=== PATIENT | female | born 1985 | race Caucasian/White ===

== ENCOUNTER 2019-06-14 11:24 | Inpatient (IN) ==
[2019-06-14] MEDS ORDERED: ZOFRAN IM PRN (17:32)
[2019-06-14] MEDS ORDERED: NICODERM PATCH TD PRN (17:32)
[2019-06-14] MEDS ORDERED: TUBERSOL ID ONE (17:32)
[2019-06-14] MEDS ORDERED: MAALOX PLUS LIQUID PO PRN (17:32)
[2019-06-14] MEDS ORDERED: D5W 1,000 ML IV PRN (17:32)
[2019-06-14] MEDS ORDERED: DULCOLAX PR PRN (17:32)
[2019-06-14] MEDS ORDERED: MOTRIN PO PRN (17:32)
[2019-06-14] MEDS ORDERED: ZOFRAN ODT PO PRN (17:32)
[2019-06-14] MEDS ORDERED: IMODIUM PO PRN ×2 (17:32)
[2019-06-14] MEDS ORDERED: SENOKOT PO PRN (17:32)
[2019-06-14] MEDS ORDERED: DESYREL PO PRN (17:32)
[2019-06-14] MEDS ORDERED: PHENOBARBITAL IV PRN (17:32)
[2019-06-14] MEDS ORDERED: ZOFRAN IV PRN (17:32)
[2019-06-14] MEDS ORDERED: NICOTINE GUM BUCCAL PRN (17:32)
[2019-06-14] MEDS ORDERED: TYLENOL PO PRN (17:32)
[2019-06-14 17:54] LABS: HEMATOCRIT 41.6 % (37.0-47.0); HEMOGLOBIN 13.9 g/dL (12.0-16.0); MCH 32.6 PG (27-31); MCHC 33.4 g/dL (33-37); MCV 97.4 FL (81-99); MPV 9.5 FL (7.4-10.4); RBC 4.27 XMIL (4.2-5.4); WBC 9.37 X1000 (4.8-10.8)
[2019-06-14 18:08] LABS: AGAP 13; ALBUMIN 4.4 g/dL (3.5-5.0); ALKALINE PHOSPHATASE 116 U/L (32-104); AMYLASE 31 U/L (20-200); BUN 11 mg/dL (8-22); CALCIUM 8.7 mg/dL (8.8-10.2); CHLORIDE 102 mmol/L (98-107); COSMO 271; CREATININE 0.5 mg/dL (0.5-0.9); ESTIMATED GFR > 60; GLUCOSE 101 mg/dL (70-104); GOT 40 U/L (10-30); GPT 20 U/L (10-36); LIPASE 27 U/L (13-60); POTASSIUM 4.2 mmol/L (3.5-5.1); SODIUM 136 mmol/L (136-145); TCO2 21 mmol/L (25-35); TOTAL PROTEIN 7.6 g/dL (6.3-8.3)
[2019-06-14 18:15] LABS: INR 0.89; PROTIME 12.5 Seconds (11.0-16.0)
[2019-06-14] MEDS ORDERED: BENTYL PO PRN (18:19)
[2019-06-14] MEDS ORDERED: SALINE LOCK IV FLUID XX ONE (18:19)
[2019-06-14] MEDS ORDERED: ATIVAN IV ONE (18:37)
[2019-06-14] MEDS: LIBRIUM PO SCH (18:38)
[2019-06-14 19:29] LABS: URINE SOURCE CLEAN CATCH
[2019-06-14 19:32] LABS: BILIRUBIN URINE NEGATIVE (NEGATIVE); BLOOD URINE TRACE (NEGATIVE); COLOR YELLOW; GLUCOSE URINE NEGATIVE (NEGATIVE); KETONE URINE 40 mg/dL (NEGATIVE); LEUKOCYTES URINE MODERATE (NEGATIVE); NITRITE URINE NEGATIVE (NEGATIVE); PH URINE 6.5; PROTEIN URINE 50 mg/dL (NEGATIVE); SP GRAVITY URINE 1.028; TURBIDITY URINE HAZY (CLEAR); UROBILINOGEN URINE NORMAL (NORMAL)
[2019-06-14 19:43] LABS: UR AMPHETAMINES QUAL NONE DETECTED (NONE DETECT); UR BARBITUATES QUAL NONE DETECTED (NONE DETECT); UR BENZODIAZEPIN QUAL NONE DETECTED (NONE DETECT); UR CANNABINOIDS QUAL NONE DETECTED (NONE DETECT); UR COCAINE QUAL NONE DETECTED (NONE DETECT); UR METHADONE QUAL NONE DETECTED (NONE DETECT); UR METHAMPHETAMINE QUAL NONE DETECTED (NONE DETECT); UR OPIATES QUAL NONE DETECTED (NONE DETECT); UR OXYCODONE QUAL PRESUMPTIVE POSITIVE (NONE DETECT); UR PCP QUAL NONE DETECTED (NONE DETECT); UR PROPOXYPHENE QUAL NONE DETECTED (NONE DETECT); UR TCA QUAL NONE DETECTED (NONE DETECT)
[2019-06-14 19:48] LABS: UR EPITHELIAL CELLS >10 /HPF (<10); URINE BACTERIA 2+ /HPF; URINE SMALL ROUND CELLS RENAL PRESENT; URINE WBC 20-40 /HPF (<10); URINE YEAST NONE SEEN
[2019-06-15] MEDS: LIBRIUM PO SCH ×4 (00:25→18:22)
[2019-06-15] MEDS: PROTONIX PO SCH (06:01)
[2019-06-15] MEDS: ATARAX PO PRN ×3 (06:02→21:47)
[2019-06-15] MEDS ORDERED: M.V.I.-12 10 ML, FOLIC ACID 1 MG, MAGNESIUM SULFATE 1 GM, THIAMINE 100 MG in NS 1,000 ML IV ONE (08:00)
[2019-06-15] MEDS ORDERED: BUSPAR PO PRN (08:19)
[2019-06-15] MEDS: THERA M PLUS PO SCH (10:22)
[2019-06-15] MEDS: FOLIC ACID PO SCH (10:22)
[2019-06-15] MEDS: VITAMIN B-1 PO SCH (10:22)
[2019-06-15] MEDS: CAMPRAL PO SCH ×3 (10:23→18:21)
[2019-06-15] MEDS: WELLBUTRIN XL PO SCH (10:23)
[2019-06-15] MEDS: BUSPAR PO PRN (10:51)
[2019-06-15] MEDS: LITHIUM CARBONATE PO SCH ×2 (13:11→21:47)
--- NOTE | 2019-06-15 15:00 | PROGRESS NOTE ---
DATE: 06/15/2019 SUBJECTIVE: Patient has no new complaints. States that overall she is feeling a little bit better, less tremors, less anxiety, less agitation. A little bit less irritability as well. PHYSICAL EXAMINATION: Vital Signs: Reviewed. Temperature 98 degrees, pulse 81, respiratory rate 18, BP 140/101. General: Patient is awake, alert. She appears to be improved. She is not shaking nearly as much as she was yesterday on exam. HEENT: Normocephalic. Neck: Supple. Cardiovascular: Regular rate. No murmurs. Chest: Clear, nonlabored. Abdomen: Soft and nontender. Extremities: Moves all extremities. Neurologic: No changes. No tremors. ASSESSMENT: 1. Hypertension. The patient has no history of high blood pressure, although is currently elevated. Going to treat symptomatic certainly for now. Certainly may need to start long- term medications. 2. Nausea and vomiting. 3. Abdominal pain. 4. Tremors. 5. Myalgias. 6. Acute anxiety with situational depression. 7. Chronic alcoholism with acute withdrawal. PLAN: We are going to continue the patient in the hospital. Continue counseling. Continue medications for alcohol withdrawal. Librium as tolerated. cc: Alvarez Hood MD
[2019-06-15] MEDS ORDERED: ATIVAN IV ONE (18:37)
[2019-06-15] MEDS ORDERED: FLU VACCINE IM ONE (19:30)
[2019-06-15] MEDS: ROBAXIN PO PRN (21:47)
[2019-06-15] MEDS: SEROQUEL PO PRN (21:47)
[2019-06-16] MEDS: LIBRIUM PO SCH ×5 (00:22→17:24)
[2019-06-16] MEDS: PROTONIX PO SCH (06:16)
[2019-06-16] MEDS ORDERED: ROCEPHIN 1 GM in NS 50 ML IV SCH (08:30)
[2019-06-16] MEDS: CAMPRAL PO SCH ×3 (09:38→17:24)
[2019-06-16] MEDS: PRINIVIL PO SCH (09:38)
[2019-06-16] MEDS: FOLIC ACID PO SCH (09:38)
[2019-06-16] MEDS: THERA M PLUS PO SCH (09:38)
[2019-06-16] MEDS: LITHIUM CARBONATE PO SCH ×2 (09:38→22:11)
[2019-06-16] MEDS: VITAMIN B-1 PO SCH (09:39)
[2019-06-16] MEDS: WELLBUTRIN XL PO SCH (09:39)
[2019-06-16] MEDS: ATARAX PO PRN (13:49)
[2019-06-16] MEDS: HALDOL IV PRN (18:35)
--- NOTE | 2019-06-16 20:26 | PROGRESS NOTE ---
DATE: 06/16/2019 SUBJECTIVE: The patient still has a multitude of complaints. Notes that she has been hallucinating. She has been listening to her father and her mother talking outside the [place]. States that she just wants to get knocked out and stay asleep the whole time. PHYSICAL EXAMINATION: Vital Signs: Reviewed. She is awake, alert. She is in no distress. HEENT: Normocephalic, atraumatic. PERRL. Neck: Supple. No JVD. Cardiovascular: Regular rate. No murmurs. Chest: Clear, nonlabored. Abdomen: Soft, nondistended. Extremities: Moves all extremities. ASSESSMENT: 1. Nausea and vomiting. 2. Abdominal pain. 3. Myalgias. 4. Tremors. 5. Alcohol abuse, withdrawal and stabilization. 6. Bipolar depression. PLAN: Discussed with the patient that alcohol hallucinations typically are not as specific as her talking to her father outside, her father talking to me about giving her medication that would sedate her and keep her asleep for the next 2 to 3 days. Discussed with her that is highly unusual and unlikely alcoholic hallucinations and most likely manipulating behavior. Discussed that we will not give her medications that will make her stay asleep for the next 2 or 3 days and at that that is highly unacceptable practice and very dangerous. We will continue to wean her Librium. She currently has no outward symptoms of alcohol withdrawal. She is not tachycardic. She has no tremor. She has no sweating. She is not fidgeting about. However, she is anxious, but it is more from a depression standpoint than from an alcohol withdrawal standpoint. We will continue to follow. cc: Alvarez Hood MD
[2019-06-17] MEDS: VITAMIN B-1 PO SCH (09:57)
[2019-06-17] MEDS: WELLBUTRIN XL PO SCH (09:57)
[2019-06-17] MEDS: LIBRIUM PO SCH ×3 (09:57→17:36)
[2019-06-17] MEDS: CAMPRAL PO SCH ×3 (09:57→17:37)
[2019-06-17] MEDS: LITHIUM CARBONATE PO SCH ×2 (09:58→21:00)
[2019-06-17] MEDS: FOLIC ACID PO SCH (09:58)
[2019-06-17] MEDS: PRINIVIL PO SCH (09:58)
[2019-06-17] MEDS: PROTONIX PO SCH (09:58)
[2019-06-17] MEDS: THERA M PLUS PO SCH (09:58)
--- NOTE | 2019-06-17 18:20 | PROGRESS NOTE ---
DATE: 06/17/2019 SUBJECTIVE: The patient notes that she is feeling a lot better this morning. She slept some last night. Denies any fevers or chills. OBJECTIVE: Vital signs reviewed and stable. She is awake, alert. She is in no distress. HEENT: Normocephalic. Neck supple. CV: Regular rate. No murmurs. Chest clear. Abdomen soft. Extremities: Moves all extremities. Neurologic: No changes. Vital signs: Temperature 98.4 degrees, pulse 86, respiratory rate 20, BP 120/68. ASSESSMENT: 1. Nausea and vomiting. 2. Abdominal pain. 3. Myalgias. 4. Tremors. 5. Paresthesias. 6. Paroxysmal sweating. 7. Alcohol abuse, withdrawal and stabilization. 8. Chronic anxiety and depression. PLAN: We are going to continue the patient in the hospital. Continue to wean Librium. Continue counseling. Further orders as needed. cc: Alvarez Hood MD
--- NOTE | 2019-06-17 20:06 | HISTORY AND PHYSICAL ---
CHIEF COMPLAINT: Nausea and vomiting. HISTORY OF PRESENT ILLNESS: The patient is a 33-year-old female who presented to [facility] secondary to nausea, vomiting, abdominal pain, myalgias, paresthesias. Notes she has been drinking heavily. Has been unable to stop secondary to withdrawal symptoms. SOCIAL HISTORY: She is , but currently has relationship problems secondary to alcoholism. She is currently unemployed. Lives at home in [place]. PAST MEDICAL HISTORY: Positive for: 1. Depression. 2. Alcoholism. 3. History of blackouts related to alcohol. 4. History of hypertension, felt to be related to alcohol, although currently not on any medications. MEDICATIONS: 1. 50 mg t.i.d. of naltrexone. 2. Wellbutrin. 3. BuSpar 15. 4. [place] 150. ALLERGIES: No known drug allergies. REVIEW OF SYSTEMS: CIWA score is 19 secondary to nausea and vomiting and severe tremors. She is unable to keep her hands still. She is shaky, weak, fatigued, has nausea. Denies any diarrhea. Has been having sweating episodes. Denies chest pain, palpitations. Denies fevers, chills, dysuria, frequency, urgency, hesitancy, polyuria or polydipsia. SUBSTANCE ABUSE HISTORY: The patient was in treatment in 2015 in [place] for 10 days. Stayed sober for 4 to 5 months from September through October 2018. She was at [facility] for 30 days, remained sober for 6 months, and relapsed in March. Alcohol has caused legal and relationship problems. She started drinking as early as age 31, currently is drinking 1 to 2 bottles of wine a day. Denies smoking or other illicit substances. FAMILY HISTORY: No family history of alcoholism per the patient. PHYSICAL EXAMINATION: VITAL SIGNS: Reviewed. GENERAL: She is awake, alert, oriented. She is in no current respiratory distress. HEENT: Normocephalic. NECK: Supple. CARDIOVASCULAR: Regular rate. No murmurs. CHEST: Clear. ABDOMEN: Soft, nondistended. EXTREMITIES: Moves all extremities. NEUROLOGIC: She is awake, alert, oriented. She has obvious tremors with her arms at rest. She is unable to answer in complete sentences. Frequently has to be redirected to answer questions. ASSESSMENT: 1. Nausea and vomiting. 2. Abdominal pain. 3. Myalgias. 4. Paresthesias. 5. Paroxysmal sweating. 6. Tremors. 7. Alcohol abuse withdrawal and stabilization. 8. Depression. PLAN: We will continue patient in the hospital on high-dose Librium taper. Place her on protocol. Will adjust as needed. Begin counseling. Will follow her blood pressures which were mildly elevated. Further orders as needed. cc: Alvarez Hood MD
[2019-06-17] MEDS: HALDOL IV PRN (21:00)
[2019-06-18] MEDS: PROTONIX PO SCH (06:15)
[2019-06-18] MEDS: CAMPRAL PO SCH ×3 (09:59→17:20)
[2019-06-18] MEDS: WELLBUTRIN XL PO SCH ×2 (09:59→12:25)
[2019-06-18] MEDS: LITHIUM CARBONATE PO SCH ×3 (10:00→20:51)
[2019-06-18] MEDS: VITAMIN B-1 PO SCH ×2 (10:00→12:25)
[2019-06-18] MEDS: PRINIVIL PO SCH ×2 (10:00→12:25)
[2019-06-18] MEDS: LIBRIUM PO SCH ×3 (10:00→17:20)
[2019-06-18] MEDS: FOLIC ACID PO SCH ×2 (10:00→12:24)
[2019-06-18] MEDS: THERA M PLUS PO SCH ×2 (10:00→12:25)
[2019-06-18] MEDS: HALDOL IV PRN (17:22)
[2019-06-19] MEDS: PROTONIX PO SCH ×2 (06:34→09:16)
--- NOTE | 2019-06-19 07:43 | PROGRESS NOTE ---
DATE: 06/18/2019 SUBJECTIVE: Patient notes 2he is feeling a lot better. Denies any fevers, chills. Denies cough, is sleeping better, is eating better. PHYSICAL EXAMINATION: Vital Signs: Reviewed. She is awake. He is in no distress. Temperature 97.6 degrees, pulse 86, respiratory 20, blood pressure 123/70. HEENT: Normocephalic. Neck: Supple. Cardiovascular: Sinus rhythm. Chest: Nonlabored. Abdomen: Nondistended. Extremities: Moves all extremities. Neurologic: No changes. ASSESSMENT: 1. Nausea and vomiting. 2. Abdominal pain. 3. Myalgias. 4. Paresthesias. 5. Paroxysmal sweating. 6. Situational depression. 7. Alcohol abuse withdrawal and stabilization. PLAN: We will continue patient in the hospital, continue to follow. Continue to wean Librium. Hopefully can discharge to further rehab on Thursday. cc: Alvarez Hood MD
[2019-06-19] MEDS: LITHIUM CARBONATE PO SCH ×2 (09:16→21:41)
[2019-06-19] MEDS: FOLIC ACID PO SCH (09:16)
[2019-06-19] MEDS: THERA M PLUS PO SCH (09:16)
[2019-06-19] MEDS: WELLBUTRIN XL PO SCH (09:16)
[2019-06-19] MEDS: LIBRIUM PO SCH ×3 (09:16→17:12)
[2019-06-19] MEDS: VITAMIN B-1 PO SCH (09:16)
[2019-06-19] MEDS: CAMPRAL PO SCH ×3 (09:16→17:12)
[2019-06-19] MEDS: PRINIVIL PO SCH (09:16)
--- NOTE | 2019-06-19 09:39 | PROGRESS NOTE ---
DATE: 06/19/2019 SUBJECTIVE: Patient notes overall she is feeling tremendously better. Notes the Haldol at night is helping her sleep much better, which is helping her anxiety and other issues during the day. Denies any fever or chills. OBJECTIVE: Vital signs: Reviewed. General: She is awake and alert. She is in no apparent respiratory distress. She is sitting in the bed, watching television. HEENT: Normocephalic. Neck: Supple. Cardiovascular: Regular rate. No murmurs. Chest: Clear, nonlabored. Abdomen: Soft, nondistended. Extremities: Moves all extremities. Neurologic: No changes. ASSESSMENT: 1. Nausea and vomiting. 2. Abdominal pain. 3. Alcohol abuse and withdrawal and stabilization. 4. Situational depression. 5. Insomnia. PLAN: Discussed with patient that we are going to wean her Librium a little bit further. Discussed also that after she gets home from rehab that she still needs to have a live sponsor. Still needs to have some she can talk to to help her avoid alcohol. Discussed that she needs to avoid all situations which encourage her to drink, cc: Alvarez Hood MD MTDD
[2019-06-19] MEDS: HALDOL IV PRN (10:02)
[2019-06-19] MEDS: SEROQUEL PO PRN (21:41)
[2019-06-19] MEDS: ROBAXIN PO PRN (23:37)
[2019-06-20] MEDS: BUSPAR PO PRN (02:59)
[2019-06-20] MEDS: PROTONIX PO SCH (06:52)
[2019-06-20 07:38] VITALS: BP 109/66
[2019-06-20] MEDS ORDERED: LIBRIUM PO ONE (09:14)
[2019-06-20] MEDS: FOLIC ACID PO SCH (10:19)
[2019-06-20] MEDS: THERA M PLUS PO SCH (10:19)
[2019-06-20] MEDS: PRINIVIL PO SCH (10:19)
[2019-06-20] MEDS: LITHIUM CARBONATE PO SCH (10:20)
[2019-06-20] MEDS: CAMPRAL PO SCH (10:20)
[2019-06-20] MEDS: WELLBUTRIN XL PO SCH (10:20)
[2019-06-20] MEDS: VITAMIN B-1 PO SCH (10:29)
--- NOTE | 2019-06-21 08:16 | DISCHARGE SUMMARY ---
ADMISSION DATE: 06/14/2019 DISCHARGE DATE: 06/20/2019 DISCHARGE DIAGNOSES: 1. Nausea and vomiting. 2. Abdominal pain. 3. Myalgias. 4. Tremors. 5. Paresthesias. 6. Situational depression. 7. Alcohol abuse withdrawal and stabilization. CONSULTATIONS: None. PROCEDURES: None. BRIEF HOSPITAL COURSE: The patient is a 33-year-old female who presented to [facility] program secondary to nausea, vomiting, abdominal pain, myalgias, paresthesias, and paroxysmal sweating. She has tried multiple medication assisted therapies in the past to include Campral, naltrexone and Antabuse. Unfortunately, none of them with which she was successful with. She was admitted to the hospital, and placed on high-dose Librium taper as well as other symptomatic medications. Thankfully, she had an uneventful hospital course on discharge. She is awake and alert. She is in no distress. She is tolerating the weaning process recently well. We did start her on Haldol for sleep, and this will be continued in rehab for the next few days at which time she will need to stop. Thankfully, otherwise, she had an uneventful hospital course. DISCHARGE EXAMINATION: On discharge, patient is awake, alert, and oriented. She is in no respiratory distress. Very pleasant. DISPOSITION: She will be discharged to rehab. She will continue her home medications as listed on the chart without any changes. She will follow up outpatient with the treatment facility of choice. TIME SPENT: Greater than 30 minutes spent in total care. cc: Alvarez Hood MD
== END 2019-06-20 11:15 | disposition home or self-care (01) | DRG 392 ==
LOC: P.DIRADM 16:48 → P.MEDSURG 17:03
PROVIDERS: ADMIT Family Medicine; ATTEND Family Medicine